=== PATIENT | female | born 1980 | race Caucasian/White ===

== ENCOUNTER 2022-03-21 23:39 | Emergency (ER) | payer BC ==
[~2022-03-21] VITALS: Ht 162.5 cm; Wt 85.2 kg
--- NOTE | 2022-03-21 23:58 | ED Chest Pain ---
General Chief Complaint: Chest Pain Stated Complaint: CHEST PAIN, History of Present Illness Date Seen by Provider: Mar 21, 2022 Time Seen by Provider: 23:53 Initial Comments 41-year-old female with family history of cardiac disease presents to the ER with chest pain. States it started to ease up but it started prior to arrival. Patient states she has been fine all day and then got into the shower did fine got out and then started feeling like a chest pain pressure in the center of her chest. No radiation to the arms. States may feel it up in the neck. Patient did note that she had elevated blood pressure. States 1 around 180/110 at home. Was slightly elevated initially and has come down. Patient states it is easing up no personal history of high blood pressure diabetes. Is never had anxiety before. Is a teacher. Allergies and Home Medications Allergies Coded Allergies: No Known Drug Allergies (Unverified , 03/21/22) Patient Home Medication List Home Medication List Reviewed: Yes Review of Systems Review of Systems Constitutional: see HPI Past Cnyzhfe-Rkyvjb-Bkvisi Hx Patient Social History Tobacco Use?: No Physical Exam Vital Signs Vital Signs - First Documented 03/21/22 23:45 Temp 36.6 Pulse 84 Resp 16 B/P (MAP) 147/89 (108) Capillary Refill : Height, Weight, BMI Height: '" Weight: lbs. oz. kg; BMI Method: General Appearance: No Apparent Distress, WD/WN, Anxious HEENT: PERRL/EOMI, Normal ENT Inspection, Pharynx Normal Neck: Full Range of Motion, Non Tender, Supple Respiratory: Lungs Clear, Normal Breath Sounds Cardiovascular: Regular Rate, Rhythm, No Murmur Skin: Normal Color, Warm/Dry Progress/Results/Core Measures Results/Orders Lab Results Laboratory Tests Test 03/22/22 00:00 Range/Units White Blood Count 9.5 4.3-11.0 10^3/uL Red Blood Count 4.14 3.80-5.11 10^6/uL Hemoglobin 12.9 11.5-16.0 g/dL Hematocrit 38 35-52 % Mean Corpuscular Volume 91 80-99 fL Mean Corpuscular Hemoglobin 31 25-34 pg Mean Corpuscular Hemoglobin Concent 34 32-36 g/dL Red Cell Distribution Width 13.2 10.0-14.5 % Platelet Count 297 130-400 10^3/uL Mean Platelet Volume 10.0 9.0-12.2 fL Immature Granulocyte % (Auto) 0 % Neutrophils (%) (Auto) 45 42-75 % Lymphocytes (%) (Auto) 45 H 12-44 % Monocytes (%) (Auto) 8 0-12 % Eosinophils (%) (Auto) 2 0-10 % Basophils (%) (Auto) 1 0-10 % Neutrophils # (Auto) 4.3 1.8-7.8 10^3/uL Lymphocytes # (Auto) 4.3 H 1.0-4.0 10^3/uL Monocytes # (Auto) 0.8 0.0-1.0 10^3/uL Eosinophils # (Auto) 0.2 0.0-0.3 10^3/uL Basophils # (Auto) 0.1 0.0-0.1 10^3/uL Immature Granulocyte # (Auto) 0.0 0.0-0.1 10^3/uL Prothrombin Time 12.6 12.2-14.7 SEC INR Comment 0.9 0.8-1.4 Sodium Level 136 135-145 MMOL/L Potassium Level 4.1 3.6-5.0 MMOL/L Chloride Level 103 98-107 MMOL/L Carbon Dioxide Level 21 21-32 MMOL/L Anion Gap 12 5-14 MMOL/L Blood Urea Nitrogen 12 7-18 MG/DL Creatinine 0.70 0.60-1.30 MG/DL Estimat Glomerular Filtration Rate 110 BUN/Creatinine Ratio 17 Glucose Level 108 H 70-105 MG/DL Calcium Level 9.2 8.5-10.1 MG/DL Corrected Calcium 8.9 8.5-10.1 MG/DL Total Bilirubin 0.2 0.1-1.0 MG/DL Aspartate Amino Transf (AST/SGOT) 22 5-34 U/L Alanine Aminotransferase (ALT/SGPT) 29 0-55 U/L Alkaline Phosphatase 99 40-136 U/L Troponin I < 0.30 <0.30 NG/ML Total Protein 7.8 6.4-8.2 GM/DL Albumin 4.4 3.2-4.5 GM/DL My Orders Orders - ANDREINA NEWTON MD Ekg Tracing (03/21/22 23:43) Cbc With Automated Diff (03/22/22 00:02) Chest 1 View Ap/Pa Only (03/22/22 00:02) Ekg Tracing (03/22/22 00:02) Comprehensive Metabolic Panel (03/22/22 00:02) Protime With Inr (03/22/22 00:02) Aspirin Tablet (Aspirin Tablet) (03/22/22 00:15) Troponin I Fs (03/22/22 00:02) Aspirin Chewable Tablet (Baby Aspirin Ch (03/22/22 00:19) Antacid Suspension (Mylanta Suspension (03/22/22 00:30) Medications Given in ED Current Medications Medications Dose Ordered Sig/Froylan Route Start Time Stop Time Status Last Admin Dose Admin Al Hydrox/Mg Hydrox/Simethicone 30 ml ONCE ONCE PO 03/22/22 00:30 03/22/22 00:32 DC 03/22/22 00:42 30 ML Aspirin 81 mg STK-MED ONCE .ROUTE 03/22/22 00:19 03/22/22 00:21 DC 03/22/22 00:20 81 MG Vital Signs/I&O 03/21/22 23:45 Temp 36.6 Pulse 84 Resp 16 B/P (MAP) 147/89 (108) Progress Progress Note : Time: 00:39 Progress Note Lab work returned normal. EKG looks okay chest x-ray looks normal. We will try Maalox and see if that helps. Initial ECG Impression Date: Mar 22, 2022 Initial ECG Impression Time: 00:38 Initial ECG Rhythm: Normal Sinus Initial ECG Intervals: Normal Initial ECG Impression: Nonspecific Changes Diagnostic Imaging Diagonstic Imaging: Xray Plain Films/CT/US/NM/MRI: chest Comments No infiltrates. Normal size heart shadow Reviewed: Reviewed by Me Departure Impression Primary Impression: Chest pain Qualified Codes: R07.89 - Other chest pain Disposition: 01 HOME, SELF-CARE Condition: Improved Departure-Patient Inst. Decision time for Depature: 01:08 Referrals: JAMES GOODWIN MD (PCP) Primary Care Physician Patient Instructions: Chest Pain That Is Not Caused by the Heart (DC) Add. Discharge Instructions: Follow-up with primary care. If symptoms recur and do not resolve then return to ER All discharge instructions reviewed with patient and/or family. Voiced understanding. ANDREINA NEWTON MD Mar 21, 2022 23:58
[2022-03-22 00:09] LABS: BASOPHILS # (AUTO) 0.1 10^3/uL (0.0-0.1); BASOPHILS % (AUTO) 1 % (0-10); EOSINOPHILS # (AUTO) 0.2 10^3/uL (0.0-0.3); EOSINOPHILS % (AUTO) 2 % (0-10); HEMATOCRIT 38 % (35-52); HEMOGLOBIN 12.9 g/dL (11.5-16.0); LYMPHOCYTES # (AUTO) 4.3 10^3/uL (1.0-4.0); LYMPHOCYTES % (AUTO) 45 % (12-44); MEAN CORPUSCULAR HEMOGLOBIN 31 pg (25-34); MEAN CORPUSCULAR HGB CONC 34 g/dL (32-36); MEAN CORPUSCULAR VOLUME 91 fL (80-99); MONOCYTES # (AUTO) 0.8 10^3/uL (0.0-1.0); MONOCYTES % (AUTO) 8 % (0-12); NEUTROPHILS # (AUTO) 4.3 10^3/uL (1.8-7.8); NEUTROPHILS % (AUTO) 45 % (42-75); PLATELET COUNT 297 10^3/uL (130-400); WHITE BLOOD COUNT 9.5 10^3/uL (4.3-11.0)
[2022-03-22] MEDS ORDERED: ASPIRIN 325 MG (5 GR) TABLET PO ONE (00:15)
[2022-03-22 00:18] LABS: INR 0.9 (0.8-1.4); PROTHROMBIN TIME PATIENT 12.6 SEC (12.2-14.7)
[2022-03-22] MEDS ORDERED: ASPIRIN 81 MG CHEW (CHILDREN'S ASA) ONE (00:19)
[2022-03-22 00:26] LABS: ALBUMIN 4.4 GM/DL (3.2-4.5); BILIRUBIN,TOTAL 0.2 MG/DL (0.1-1.0); CALCIUM 9.2 MG/DL (8.5-10.1); CREATININE SERUM 0.7 MG/DL (0.60-1.30); POTASSIUM 4.1 MMOL/L (3.6-5.0); TOTAL PROTEIN 7.8 GM/DL (6.4-8.2)
[2022-03-22] MEDS ORDERED: ANTACID SUSP 30 ML UDC (MYLANTA) PO ONE (00:30)
[2022-03-22 01:16] VITALS: BP 123/73
--- NOTE | 2022-03-22 07:47 | Diagnostic Imaging Report ---
CLINICAL INDICATION: Patient with chest pain. EXAM: Portable chest x-ray upright view. COMPARISON: None. FINDINGS: Lungs/pleura: Lungs are clear. There is no pneumothorax. There is no pleural effusion. Mediastinum: Unremarkable. Pulmonary vasculature: Unremarkable. Heart: Unremarkable. Bones/extrathoracic soft tissue: Unremarkable. IMPRESSION: There is no radiographic evidence of acute cardiopulmonary process. Dictated by: Dictated on workstation # [id number]
== END 2022-03-22 01:16 | disposition home or self-care (01) ==
LOC: EDUNIT# 23:39 → ER FS 23:44
DX: R07.9 Chest pain, unspecified (principal)
CPT/HCPCS: 36415; 71045; 80053; 84484; 85025; 85610; 93005